=== PATIENT | male | born 1965 | race African-American/Black ===

== ENCOUNTER 2023-09-07 13:46 | Inpatient (IN) | payer OTHER ==
[2023-09-07 14:11] VITALS: BMI 29.1
[2023-09-07] MEDS ORDERED: IBUPROFEN 600 MG TABLET (FP) PO PRN (14:58)
[2023-09-07] MEDS ORDERED: METHOCARBAMOL 500 MG TABLET PO PRN (14:58)
[2023-09-07] MEDS ORDERED: BISMUTH SUBSALICYLATE 262 MG/15 ML BTL PO PRN (14:58)
[2023-09-07] MEDS ORDERED: guaiFENesin 600 MG TABLET.ER (FP) PO PRN (14:58)
[2023-09-07] MEDS ORDERED: POLYETHYLENE GLYCOL (HEALTHYLAX) 3350 17 GM PACKET PO PRN (14:58)
[2023-09-07] MEDS ORDERED: LOPERAMIDE HCL 2 MG CAPSULE PO PRN (14:58)
[2023-09-07] MEDS ORDERED: MAGNESIUM HYDROX 2400MG/30ML ORAL SUSPENSION 30 ML CUP PO PRN (14:58)
[2023-09-07] MEDS ORDERED: MAG HYDROX/AL HYDROX/SIMETH 30 ML UNIT-DOSE CUP PO PRN (14:58)
[2023-09-07] MEDS ORDERED: ACETAMINOPHEN 325 MG TABLET (FP) PO PRN (14:58)
[2023-09-07] MEDS ORDERED: NALOXONE HCL (KLOXXADO) 8 MG SPRAY NS PRN (14:58)
[2023-09-07] MEDS ORDERED: ONDANSETRON *ODT* 4 MG TABLET SL PRN (14:58)
[2023-09-07] MEDS ORDERED: BENZONATATE 200 MG CAPSULE PO PRN (14:58)
[2023-09-07] MEDS ORDERED: DICYCLOMINE HCL 10 MG CAPSULE PO PRN (14:58)
[2023-09-07] MEDS ORDERED: NALOXONE HCL 0.4 MG/ML VIAL IM PRN (14:58)
[2023-09-07] MEDS ORDERED: IBUPROFEN 400 MG TABLET (FP) PO PRN (14:58)
[2023-09-07] MEDS ORDERED: BENZOCAINE/MENTHOL (CHLORASEPTIC ) LOZENGE MM PRN (14:58)
[2023-09-07] MEDS: hydrOXYzine PAMOATE 25 MG CAPSULE (FP) PO PRN (17:35)
[2023-09-07] MEDS: PRENATAL VITAMINS W/ FOLIC ACID TABLET (FP) PO SCH (17:39)
[2023-09-07] MEDS: cloNIDine HCL 0.1 MG TABLET PO ONE ×2 (18:44→21:32)
[2023-09-07] MEDS: THIAMINE HCL 100 MG TABLET (FP) PO SCH (22:40)
[2023-09-07] MEDS: MELATONIN 5 MG TABLETS PO SCH (22:40)
[2023-09-08 10:35] LABS: CHLORIDE 104 mmol/L (98-107); SODIUM 137 mmol/L (136-145)
[2023-09-08 10:52] LABS: ALBUMIN 3.4 g/dl (3.4-5.0); ANION GAP 7 mmol/L (4-13); BLOOD UREA NITROGEN 12.8 mg/dL (7-18); CALCIUM 9.2 mg/dL (8.5-10.1); CO2 26 mmol/L (21-32); GLUCOSE,RANDOM 89 mg/dL (74-106)
[2023-09-08 10:55] LABS: CREATININE 1.1 mg/dL (0.55-1.3); SGOT/AST 80 U/L (15-37); SGPT/ALT 43 U/L (13-61)
[2023-09-08 10:57] LABS: TOT PROT 7.8 g/dl (6.4-8.2)
[2023-09-08 10:58] LABS: ALK PHOS 170 U/L (45-117)
[2023-09-08 11:02] LABS: HEMATOCRIT 38.2 % (35.4-49); HEMOGLOBIN 12.7 GM/dL (11.7-16.9); MCH 33.5 pg (25.7-33.7); MCHC 33.2 g/dl (32.0-35.9); MEAN CELL VOLUME 101.1 fl (80-96); MEAN PLT VOLUME 8.2 fl (7.5-11.1); PLATELET COUNT 317 10^3/uL (134-434); RBC 3.78 M/mm3 (4.00-5.60); RDW 13.2 % (11.9-15.9); WHITE BLOOD COUNT 5.4 K/mm3 (4.0-10.0)
[2023-09-08] MEDS: OXYMETAZOLINE 0.05% NASAL SOLUTION 15 ML BOTTLE NS SCH (22:31)
[2023-09-09 13:08] VITALS: BP 124/66; PULSE 79; RESP 16; TEMP 97.8
== END 2023-09-09 15:09 | disposition home or self-care (01) | DRG 775 ==
LOC: YASAS 13:46 → Y6N 16:44
PROVIDERS: ADMIT Allergy & Immunology; ATTEND Surgery
PROC: HZ2ZZZZ Detoxification Services for Substance Abuse Treatment (ICD-10-PCS; principal; 2023-09-07)
DX: F10.20 Alcohol dependence, uncomplicated (principal); I10 Essential (primary) hypertension; Z85.038 Personal history of other malignant neoplasm of large intestine; Z90.49 Acquired absence of other specified parts of digestive tract; Z93.3 Colostomy status
CPT/HCPCS: 36415; 80053; 80307; 85027; 86780; 87635; 87811; 93005; 93010

== ENCOUNTER 2023-09-09 15:06 | Inpatient (IN) | payer OTHER ==
[2023-09-09] MEDS ORDERED: NALOXONE HCL 0.4 MG/ML VIAL IVPUSH PRN (15:56)
[2023-09-09] MEDS ORDERED: METHOCARBAMOL 500 MG TABLET PO PRN (15:56)
[2023-09-09] MEDS ORDERED: MAGNESIUM HYDROX 2400MG/30ML ORAL SUSPENSION 30 ML CUP PO PRN (15:56)
[2023-09-09] MEDS ORDERED: IBUPROFEN 400 MG TABLET (FP) PO PRN (15:56)
[2023-09-09] MEDS ORDERED: ACETAMINOPHEN 325 MG TABLET (FP) PO PRN (15:56)
[2023-09-09] MEDS ORDERED: LOPERAMIDE HCL 2 MG CAPSULE PO PRN (15:56)
[2023-09-09] MEDS ORDERED: POLYETHYLENE GLYCOL (HEALTHYLAX) 3350 17 GM PACKET PO PRN (15:56)
[2023-09-09] MEDS ORDERED: MAG HYDROX/AL HYDROX/SIMETH 30 ML UNIT-DOSE CUP PO PRN (15:56)
[2023-09-09] MEDS ORDERED: guaiFENesin 600 MG TABLET.ER (FP) PO PRN (15:56)
[2023-09-09] MEDS ORDERED: NALOXONE HCL (KLOXXADO) 8 MG SPRAY NS PRN (15:56)
[2023-09-09] MEDS ORDERED: BENZONATATE 200 MG CAPSULE PO PRN (15:56)
[2023-09-09] MEDS ORDERED: COLLOIDAL OATMEAL 1 BAR EACH TP PRN (15:56)
[2023-09-09] MEDS ORDERED: BENZOCAINE/MENTHOL (CHLORASEPTIC ) LOZENGE MM PRN (15:56)
[2023-09-09] MEDS ORDERED: amLODIPine BESYLATE 10 MG TABLET (FP) PO ONE (16:02)
[2023-09-09] MEDS: amLODIPine BESYLATE 10 MG TABLET (FP) PO SCH (17:19)
[2023-09-09] MEDS: MELATONIN 5 MG TABLETS PO SCH (21:45)
[2023-09-09] MEDS: THIAMINE HCL 100 MG TABLET (FP) PO SCH (21:45)
[2023-09-09] MEDS: OXYMETAZOLINE 0.05% NASAL SOLUTION 15 ML BOTTLE NS SCH (21:46)
[2023-09-10] MEDS: PRENATAL VITAMINS W/ FOLIC ACID TABLET (FP) PO SCH (09:48)
[2023-09-10] MEDS: amLODIPine BESYLATE 10 MG TABLET (FP) PO SCH (09:48)
[2023-09-10] MEDS: OXYMETAZOLINE 0.05% NASAL SOLUTION 15 ML BOTTLE NS SCH ×2 (09:48→21:25)
[2023-09-10] MEDS ORDERED: FLU VACCINE (FLULAVAL) PF 60 MCG/0.5 ML SYRINGE 2023-2024 IM ONE (12:00)
[2023-09-10] MEDS ORDERED: PNEUMOC 20-VAL CONJ-DIP CRM/PF 0.5 ML SYRINGE IM ONE (12:00)
[2023-09-10] MEDS: MELATONIN 5 MG TABLETS PO SCH (21:24)
[2023-09-10] MEDS: THIAMINE HCL 100 MG TABLET (FP) PO SCH (21:25)
[2023-09-11] MEDS: PRENATAL VITAMINS W/ FOLIC ACID TABLET (FP) PO SCH (09:37)
[2023-09-11] MEDS: OXYMETAZOLINE 0.05% NASAL SOLUTION 15 ML BOTTLE NS SCH ×2 (09:38→21:13)
[2023-09-11] MEDS: amLODIPine BESYLATE 10 MG TABLET (FP) PO SCH (09:38)
[2023-09-11] MEDS: THIAMINE HCL 100 MG TABLET (FP) PO SCH (21:13)
[2023-09-11] MEDS: MELATONIN 5 MG TABLETS PO SCH (21:13)
[2023-09-12] MEDS: amLODIPine BESYLATE 10 MG TABLET (FP) PO SCH (09:40)
[2023-09-12] MEDS: OXYMETAZOLINE 0.05% NASAL SOLUTION 15 ML BOTTLE NS SCH ×2 (09:40→21:20)
[2023-09-12] MEDS: PRENATAL VITAMINS W/ FOLIC ACID TABLET (FP) PO SCH (09:40)
[2023-09-12] MEDS: MELATONIN 5 MG TABLETS PO SCH (21:19)
[2023-09-12] MEDS: THIAMINE HCL 100 MG TABLET (FP) PO SCH (21:19)
[2023-09-13] MEDS: OXYMETAZOLINE 0.05% NASAL SOLUTION 15 ML BOTTLE NS SCH ×2 (09:35→21:22)
[2023-09-13] MEDS: amLODIPine BESYLATE 10 MG TABLET (FP) PO SCH (09:36)
[2023-09-13] MEDS: PRENATAL VITAMINS W/ FOLIC ACID TABLET (FP) PO SCH (09:36)
[2023-09-13] MEDS: MELATONIN 5 MG TABLETS PO SCH (21:22)
[2023-09-13] MEDS: THIAMINE HCL 100 MG TABLET (FP) PO SCH (21:22)
[2023-09-14] MEDS: amLODIPine BESYLATE 10 MG TABLET (FP) PO SCH (10:12)
[2023-09-14] MEDS: PRENATAL VITAMINS W/ FOLIC ACID TABLET (FP) PO SCH (10:12)
[2023-09-14] MEDS: OXYMETAZOLINE 0.05% NASAL SOLUTION 15 ML BOTTLE NS PRN (13:40)
[2023-09-14] MEDS: MELATONIN 5 MG TABLETS PO SCH (21:17)
[2023-09-14] MEDS: THIAMINE HCL 100 MG TABLET (FP) PO SCH (21:17)
[2023-09-15] MEDS: PRENATAL VITAMINS W/ FOLIC ACID TABLET (FP) PO SCH (09:24)
[2023-09-15] MEDS: amLODIPine BESYLATE 10 MG TABLET (FP) PO SCH (09:24)
[2023-09-15] MEDS: OXYMETAZOLINE 0.05% NASAL SOLUTION 15 ML BOTTLE NS PRN (16:47)
[2023-09-15] MEDS: THIAMINE HCL 100 MG TABLET (FP) PO SCH (21:22)
[2023-09-15] MEDS: MELATONIN 5 MG TABLETS PO SCH (21:22)
[2023-09-16] MEDS: hydrOXYzine PAMOATE 25 MG CAPSULE (FP) PO PRN (01:37)
[2023-09-16] MEDS: OXYMETAZOLINE 0.05% NASAL SOLUTION 15 ML BOTTLE NS PRN ×3 (07:30→21:10)
[2023-09-16] MEDS: PRENATAL VITAMINS W/ FOLIC ACID TABLET (FP) PO SCH (10:41)
[2023-09-16] MEDS: amLODIPine BESYLATE 10 MG TABLET (FP) PO SCH (10:41)
[2023-09-16] MEDS: THIAMINE HCL 100 MG TABLET (FP) PO SCH (21:09)
[2023-09-16] MEDS: MELATONIN 5 MG TABLETS PO SCH (21:09)
[2023-09-17] MEDS: amLODIPine BESYLATE 10 MG TABLET (FP) PO SCH (10:01)
[2023-09-17] MEDS: OXYMETAZOLINE 0.05% NASAL SOLUTION 15 ML BOTTLE NS PRN (10:01)
[2023-09-17] MEDS: PRENATAL VITAMINS W/ FOLIC ACID TABLET (FP) PO SCH (10:01)
[2023-09-17] MEDS: MELATONIN 5 MG TABLETS PO SCH (21:18)
[2023-09-17] MEDS: THIAMINE HCL 100 MG TABLET (FP) PO SCH (21:18)
[2023-09-18] MEDS: OXYMETAZOLINE 0.05% NASAL SOLUTION 15 ML BOTTLE NS PRN ×2 (06:03→21:07)
[2023-09-18] MEDS: PRENATAL VITAMINS W/ FOLIC ACID TABLET (FP) PO SCH (10:22)
[2023-09-18] MEDS: amLODIPine BESYLATE 10 MG TABLET (FP) PO SCH (10:22)
[2023-09-18] MEDS: THIAMINE HCL 100 MG TABLET (FP) PO SCH (21:06)
[2023-09-18] MEDS: MELATONIN 5 MG TABLETS PO SCH (21:06)
[2023-09-19] MEDS: OXYMETAZOLINE 0.05% NASAL SOLUTION 15 ML BOTTLE NS PRN ×2 (06:04→21:02)
[2023-09-19] MEDS: PRENATAL VITAMINS W/ FOLIC ACID TABLET (FP) PO SCH (10:07)
[2023-09-19] MEDS: amLODIPine BESYLATE 10 MG TABLET (FP) PO SCH (10:07)
[2023-09-19] MEDS: P-EPHED 60MG/TRIPROLIDI 2.5MG TABLET PO PRN (14:56)
[2023-09-19] MEDS: hydrOXYzine PAMOATE 25 MG CAPSULE (FP) PO PRN (21:02)
[2023-09-19] MEDS: THIAMINE HCL 100 MG TABLET (FP) PO SCH (21:02)
[2023-09-19] MEDS: MELATONIN 5 MG TABLETS PO SCH (21:02)
[2023-09-20] MEDS: OXYMETAZOLINE 0.05% NASAL SOLUTION 15 ML BOTTLE NS PRN ×3 (06:29→20:23)
[2023-09-20] MEDS: PRENATAL VITAMINS W/ FOLIC ACID TABLET (FP) PO SCH (10:21)
[2023-09-20] MEDS: amLODIPine BESYLATE 10 MG TABLET (FP) PO SCH (10:22)
[2023-09-20] MEDS: SODIUM CHLORIDE NASAL SPRAY 44 ML BOTTLE NS PRN (18:48)
[2023-09-20] MEDS: THIAMINE HCL 100 MG TABLET (FP) PO SCH (21:07)
[2023-09-20] MEDS: hydrOXYzine PAMOATE 25 MG CAPSULE (FP) PO PRN (21:07)
[2023-09-20] MEDS: MELATONIN 5 MG TABLETS PO SCH (21:07)
[2023-09-21] MEDS: P-EPHED 60MG/TRIPROLIDI 2.5MG TABLET PO PRN (05:56)
[2023-09-21] MEDS: SODIUM CHLORIDE NASAL SPRAY 44 ML BOTTLE NS PRN (05:57)
[2023-09-21] MEDS: PRENATAL VITAMINS W/ FOLIC ACID TABLET (FP) PO SCH (09:09)
[2023-09-21] MEDS: OXYMETAZOLINE 0.05% NASAL SOLUTION 15 ML BOTTLE NS PRN ×2 (09:09→18:10)
[2023-09-21] MEDS: amLODIPine BESYLATE 10 MG TABLET (FP) PO SCH (09:09)
[2023-09-21] MEDS: THIAMINE HCL 100 MG TABLET (FP) PO SCH (21:19)
[2023-09-21] MEDS: hydrOXYzine PAMOATE 25 MG CAPSULE (FP) PO PRN (21:19)
[2023-09-21] MEDS: MELATONIN 5 MG TABLETS PO SCH (21:19)
[2023-09-22] MEDS: amLODIPine BESYLATE 10 MG TABLET (FP) PO SCH (09:56)
[2023-09-22] MEDS: PRENATAL VITAMINS W/ FOLIC ACID TABLET (FP) PO SCH (09:56)
[2023-09-22] MEDS: IBUPROFEN 600 MG TABLET (FP) PO PRN (18:42)
[2023-09-22] MEDS: MELATONIN 5 MG TABLETS PO SCH (21:10)
[2023-09-22] MEDS: hydrOXYzine PAMOATE 25 MG CAPSULE (FP) PO PRN (21:10)
[2023-09-22] MEDS: THIAMINE HCL 100 MG TABLET (FP) PO SCH (21:10)
[2023-09-23] MEDS: OXYMETAZOLINE 0.05% NASAL SOLUTION 15 ML BOTTLE NS PRN ×2 (05:54→13:19)
[2023-09-23] MEDS: amLODIPine BESYLATE 10 MG TABLET (FP) PO SCH (09:57)
[2023-09-23] MEDS: PRENATAL VITAMINS W/ FOLIC ACID TABLET (FP) PO SCH (09:57)
[2023-09-23] MEDS: SODIUM CHLORIDE NASAL SPRAY 44 ML BOTTLE NS PRN (13:19)
[2023-09-23] MEDS: P-EPHED 60MG/TRIPROLIDI 2.5MG TABLET PO PRN (13:20)
[2023-09-23] MEDS: FLUTICASONE PROP 0.05% 16 GM NASAL SPRAY NS SCH ×2 (14:57→21:12)
[2023-09-23] MEDS: OXYMETAZOLINE 0.05% NASAL SOLUTION 15 ML BOTTLE NS SCH ×2 (14:59→21:12)
[2023-09-23] MEDS: THIAMINE HCL 100 MG TABLET (FP) PO SCH (21:12)
[2023-09-23] MEDS: MELATONIN 5 MG TABLETS PO SCH (21:12)
[2023-09-23] MEDS: hydrOXYzine PAMOATE 25 MG CAPSULE (FP) PO PRN (21:13)
[2023-09-24] MEDS: P-EPHED 60MG/TRIPROLIDI 2.5MG TABLET PO PRN (06:36)
[2023-09-24] MEDS: PRENATAL VITAMINS W/ FOLIC ACID TABLET (FP) PO SCH (10:10)
[2023-09-24] MEDS: amLODIPine BESYLATE 10 MG TABLET (FP) PO SCH (10:10)
[2023-09-24] MEDS: OXYMETAZOLINE 0.05% NASAL SOLUTION 15 ML BOTTLE NS SCH ×2 (10:11→21:18)
[2023-09-24] MEDS: SODIUM CHLORIDE NASAL SPRAY 44 ML BOTTLE NS PRN (10:12)
[2023-09-24] MEDS: FLUTICASONE PROP 0.05% 16 GM NASAL SPRAY NS SCH ×2 (10:13→21:18)
[2023-09-24] MEDS: THIAMINE HCL 100 MG TABLET (FP) PO SCH (21:18)
[2023-09-24] MEDS: MELATONIN 5 MG TABLETS PO SCH (21:18)
[2023-09-24] MEDS: hydrOXYzine PAMOATE 25 MG CAPSULE (FP) PO PRN (21:19)
[2023-09-25] MEDS: amLODIPine BESYLATE 10 MG TABLET (FP) PO SCH (09:50)
[2023-09-25] MEDS: FLUTICASONE PROP 0.05% 16 GM NASAL SPRAY NS SCH ×2 (09:50→21:14)
[2023-09-25] MEDS: PRENATAL VITAMINS W/ FOLIC ACID TABLET (FP) PO SCH (09:50)
[2023-09-25] MEDS: OXYMETAZOLINE 0.05% NASAL SOLUTION 15 ML BOTTLE NS SCH ×2 (09:51→21:14)
[2023-09-25] MEDS: P-EPHED 60MG/TRIPROLIDI 2.5MG TABLET PO PRN (15:27)
[2023-09-25] MEDS: SODIUM CHLORIDE NASAL SPRAY 44 ML BOTTLE NS PRN (15:28)
[2023-09-25] MEDS: THIAMINE HCL 100 MG TABLET (FP) PO SCH (21:14)
[2023-09-25] MEDS: MELATONIN 5 MG TABLETS PO SCH (21:14)
[2023-09-26] MEDS: SODIUM CHLORIDE NASAL SPRAY 44 ML BOTTLE NS PRN (06:02)
[2023-09-26] MEDS: PRENATAL VITAMINS W/ FOLIC ACID TABLET (FP) PO SCH (09:55)
[2023-09-26] MEDS: FLUTICASONE PROP 0.05% 16 GM NASAL SPRAY NS SCH ×2 (09:56→21:27)
[2023-09-26] MEDS: OXYMETAZOLINE 0.05% NASAL SOLUTION 15 ML BOTTLE NS SCH ×2 (09:56→21:27)
[2023-09-26] MEDS: amLODIPine BESYLATE 10 MG TABLET (FP) PO SCH (09:56)
[2023-09-26] MEDS: P-EPHED 60MG/TRIPROLIDI 2.5MG TABLET PO PRN (20:14)
[2023-09-26] MEDS: IBUPROFEN 600 MG TABLET (FP) PO PRN (20:14)
[2023-09-26] MEDS: MELATONIN 5 MG TABLETS PO SCH (21:26)
[2023-09-26] MEDS: hydrOXYzine PAMOATE 25 MG CAPSULE (FP) PO PRN (21:26)
[2023-09-26] MEDS: THIAMINE HCL 100 MG TABLET (FP) PO SCH (21:27)
[2023-09-27] MEDS: SODIUM CHLORIDE NASAL SPRAY 44 ML BOTTLE NS PRN ×2 (05:56→19:06)
[2023-09-27] MEDS: OXYMETAZOLINE 0.05% NASAL SOLUTION 15 ML BOTTLE NS SCH ×2 (09:34→21:25)
[2023-09-27] MEDS: PRENATAL VITAMINS W/ FOLIC ACID TABLET (FP) PO SCH (09:34)
[2023-09-27] MEDS: FLUTICASONE PROP 0.05% 16 GM NASAL SPRAY NS SCH ×2 (09:34→21:25)
[2023-09-27] MEDS: P-EPHED 60MG/TRIPROLIDI 2.5MG TABLET PO PRN (09:34)
[2023-09-27] MEDS: amLODIPine BESYLATE 10 MG TABLET (FP) PO SCH (09:34)
[2023-09-27] MEDS: hydrOXYzine PAMOATE 25 MG CAPSULE (FP) PO PRN (21:24)
[2023-09-27] MEDS: MELATONIN 5 MG TABLETS PO SCH (21:24)
[2023-09-27] MEDS: THIAMINE HCL 100 MG TABLET (FP) PO SCH (21:24)
[2023-09-28] MEDS: OXYMETAZOLINE 0.05% NASAL SOLUTION 15 ML BOTTLE NS SCH ×2 (10:00→21:09)
[2023-09-28] MEDS: PRENATAL VITAMINS W/ FOLIC ACID TABLET (FP) PO SCH (10:00)
[2023-09-28] MEDS: FLUTICASONE PROP 0.05% 16 GM NASAL SPRAY NS SCH ×2 (10:00→21:09)
[2023-09-28] MEDS: MELATONIN 5 MG TABLETS PO SCH (21:08)
[2023-09-28] MEDS: THIAMINE HCL 100 MG TABLET (FP) PO SCH (21:08)
[2023-09-28] MEDS: hydrOXYzine PAMOATE 25 MG CAPSULE (FP) PO PRN (21:09)
[2023-09-29] MEDS: FLUTICASONE PROP 0.05% 16 GM NASAL SPRAY NS SCH ×2 (09:43→21:20)
[2023-09-29] MEDS: OXYMETAZOLINE 0.05% NASAL SOLUTION 15 ML BOTTLE NS SCH ×2 (09:43→21:21)
[2023-09-29] MEDS: PRENATAL VITAMINS W/ FOLIC ACID TABLET (FP) PO SCH (09:43)
[2023-09-29] MEDS: IBUPROFEN 600 MG TABLET (FP) PO PRN (15:33)
[2023-09-29] MEDS: SODIUM CHLORIDE NASAL SPRAY 44 ML BOTTLE NS PRN (19:00)
[2023-09-29] MEDS: THIAMINE HCL 100 MG TABLET (FP) PO SCH (21:21)
[2023-09-29] MEDS: hydrOXYzine PAMOATE 25 MG CAPSULE (FP) PO PRN (21:21)
[2023-09-29] MEDS: MELATONIN 5 MG TABLETS PO SCH (21:21)
[2023-09-30] MEDS: PRENATAL VITAMINS W/ FOLIC ACID TABLET (FP) PO SCH (10:34)
[2023-09-30] MEDS: FLUTICASONE PROP 0.05% 16 GM NASAL SPRAY NS SCH ×2 (10:34→21:09)
[2023-09-30] MEDS: OXYMETAZOLINE 0.05% NASAL SOLUTION 15 ML BOTTLE NS SCH ×2 (10:35→21:09)
[2023-09-30] MEDS: IBUPROFEN 600 MG TABLET (FP) PO PRN (18:26)
[2023-09-30] MEDS: hydrOXYzine PAMOATE 25 MG CAPSULE (FP) PO PRN (21:08)
[2023-09-30] MEDS: THIAMINE HCL 100 MG TABLET (FP) PO SCH (21:08)
[2023-09-30] MEDS: MELATONIN 5 MG TABLETS PO SCH (21:10)
[2023-09-30] MEDS: GABAPENTIN 100 MG CAPSULE PO SCH ×2 (21:10→21:11)
[2023-10-01] MEDS: OXYMETAZOLINE 0.05% NASAL SOLUTION 15 ML BOTTLE NS SCH ×2 (10:08→21:20)
[2023-10-01] MEDS: GABAPENTIN 100 MG CAPSULE PO SCH ×2 (10:08→21:20)
[2023-10-01] MEDS: FLUTICASONE PROP 0.05% 16 GM NASAL SPRAY NS SCH ×2 (10:08→21:19)
[2023-10-01] MEDS: PRENATAL VITAMINS W/ FOLIC ACID TABLET (FP) PO SCH (10:09)
[2023-10-01] MEDS: MELATONIN 5 MG TABLETS PO SCH (21:19)
[2023-10-01] MEDS: THIAMINE HCL 100 MG TABLET (FP) PO SCH (21:19)
[2023-10-01] MEDS: hydrOXYzine PAMOATE 25 MG CAPSULE (FP) PO PRN (21:20)
[2023-10-02] MEDS: PRENATAL VITAMINS W/ FOLIC ACID TABLET (FP) PO SCH (09:52)
[2023-10-02] MEDS: GABAPENTIN 100 MG CAPSULE PO SCH ×2 (09:53→21:41)
[2023-10-02] MEDS: FLUTICASONE PROP 0.05% 16 GM NASAL SPRAY NS SCH ×2 (09:54→21:42)
[2023-10-02] MEDS: OXYMETAZOLINE 0.05% NASAL SOLUTION 15 ML BOTTLE NS SCH ×2 (09:54→21:42)
[2023-10-02] MEDS: P-EPHED 60MG/TRIPROLIDI 2.5MG TABLET PO PRN (19:30)
[2023-10-02] MEDS: THIAMINE HCL 100 MG TABLET (FP) PO SCH (21:41)
[2023-10-02] MEDS: hydrOXYzine PAMOATE 25 MG CAPSULE (FP) PO PRN (21:41)
[2023-10-02] MEDS: MELATONIN 5 MG TABLETS PO SCH (21:41)
[2023-10-03] MEDS: OXYMETAZOLINE 0.05% NASAL SOLUTION 15 ML BOTTLE NS SCH ×3 (09:50→21:20)
[2023-10-03] MEDS: GABAPENTIN 100 MG CAPSULE PO SCH ×2 (09:51→21:20)
[2023-10-03] MEDS: PRENATAL VITAMINS W/ FOLIC ACID TABLET (FP) PO SCH (09:51)
[2023-10-03] MEDS: FLUTICASONE PROP 0.05% 16 GM NASAL SPRAY NS SCH ×2 (10:35→21:20)
[2023-10-03] MEDS: P-EPHED 60MG/TRIPROLIDI 2.5MG TABLET PO PRN (16:14)
[2023-10-03] MEDS: THIAMINE HCL 100 MG TABLET (FP) PO SCH (21:20)
[2023-10-03] MEDS: MELATONIN 5 MG TABLETS PO SCH (21:20)
[2023-10-03] MEDS: hydrOXYzine PAMOATE 25 MG CAPSULE (FP) PO PRN (21:20)
[2023-10-04] MEDS: FLUTICASONE PROP 0.05% 16 GM NASAL SPRAY NS SCH ×2 (09:47→21:10)
[2023-10-04] MEDS: GABAPENTIN 100 MG CAPSULE PO SCH ×2 (09:48→21:09)
[2023-10-04] MEDS: OXYMETAZOLINE 0.05% NASAL SOLUTION 15 ML BOTTLE NS SCH ×2 (09:48→21:09)
[2023-10-04] MEDS: PRENATAL VITAMINS W/ FOLIC ACID TABLET (FP) PO SCH (09:48)
[2023-10-04] MEDS: MELATONIN 5 MG TABLETS PO SCH (21:09)
[2023-10-04] MEDS: hydrOXYzine PAMOATE 25 MG CAPSULE (FP) PO PRN (21:09)
[2023-10-04] MEDS: THIAMINE HCL 100 MG TABLET (FP) PO SCH (21:09)
[2023-10-04] MEDS: P-EPHED 60MG/TRIPROLIDI 2.5MG TABLET PO PRN (21:10)
[2023-10-05 07:05] VITALS: TEMP 97.7
[2023-10-05] MEDS: FLUTICASONE PROP 0.05% 16 GM NASAL SPRAY NS SCH ×2 (09:48→21:24)
[2023-10-05] MEDS: OXYMETAZOLINE 0.05% NASAL SOLUTION 15 ML BOTTLE NS SCH ×2 (09:48→21:23)
[2023-10-05] MEDS: GABAPENTIN 100 MG CAPSULE PO SCH ×2 (09:48→21:24)
[2023-10-05] MEDS: PRENATAL VITAMINS W/ FOLIC ACID TABLET (FP) PO SCH (09:48)
[2023-10-05] MEDS: P-EPHED 60MG/TRIPROLIDI 2.5MG TABLET PO PRN ×2 (09:49→17:52)
[2023-10-05] MEDS: MELATONIN 5 MG TABLETS PO SCH (21:24)
[2023-10-05] MEDS: THIAMINE HCL 100 MG TABLET (FP) PO SCH (21:24)
[2023-10-05] MEDS: hydrOXYzine PAMOATE 25 MG CAPSULE (FP) PO PRN (21:24)
[2023-10-06] MEDS: PRENATAL VITAMINS W/ FOLIC ACID TABLET (FP) PO SCH (09:08)
[2023-10-06] MEDS: GABAPENTIN 100 MG CAPSULE PO SCH (09:09)
[2023-10-06] MEDS: FLUTICASONE PROP 0.05% 16 GM NASAL SPRAY NS SCH (09:09)
[2023-10-06] MEDS: OXYMETAZOLINE 0.05% NASAL SOLUTION 15 ML BOTTLE NS SCH (09:10)
[2023-10-06] MEDS: P-EPHED 60MG/TRIPROLIDI 2.5MG TABLET PO PRN (09:10)
[2023-10-06 09:23] VITALS: BP 146/84; PULSE 80; RESP 18
== END 2023-10-06 09:23 | disposition home or self-care (01) | DRG 772 ==
LOC: YASAS 15:06 → Y3E 15:08 → Y3W 09-16 00:59
PROVIDERS: ADMIT Allergy & Immunology; ATTEND Psychiatry & Neurology Pain Medicine
PROC: HZ42ZZZ Group Counseling for Substance Abuse Treatment, Cognitive-Behavioral (ICD-10-PCS; principal; 2023-09-09)
DX: F10.20 Alcohol dependence, uncomplicated (principal); J32.8 Other chronic sinusitis; J30.89 Other allergic rhinitis; Z85.038 Personal history of other malignant neoplasm of large intestine; Z90.49 Acquired absence of other specified parts of digestive tract; Z93.3 Colostomy status; Z88.9 Allergy status to unspecified drugs, medicaments and biological substances
CPT/HCPCS: 0241U-QW; 36415; 73630-TC-LT; 73630-TC-RT-FY; 86803; 90677; 90686; G0008